=== PATIENT | male | born 1970 | race Caucasian/White ===

== ENCOUNTER 2016-12-06 15:40 | Emergency (ER) | payer OTHER ==
[~2016-12-06] VITALS: Ht 182.9 cm; Wt 102.1 kg
[2016-12-06 15:47] VITALS: BP_SYST 131
--- NOTE | 2016-12-06 16:11 | NUR ---
Patient to ER bed 05 to gown for evaluation. Side rails up. Report given to Nora
--- NOTE | 2016-12-06 16:15 | NUR ---
Pt complains of R shoulder pain that radiates to the R elbow, pt states moved a fridge Reji and the pain has just been getting worse since then. Pt is unable to move shoulder, there is swelling and pt states it hurts inside near his chest. No other injuries/complaints per pt or noted.
--- NOTE | 2016-12-06 16:19 | NUR ---
ER PAULA Hernandez at bedside examining patient.
[2016-12-06] MEDS ORDERED: KETOROLAC TROMETHAMINE 60 MG/2 ML VIAL IM ONE (16:30)
[2016-12-06 16:52] VITALS: BP_SYST 128
--- NOTE | 2016-12-06 16:52 | NUR ---
Patient given written and verbal discharge instructions and verbalizes understanding. ER MD discussed with patient the results and treatment provided. Patient in stable condition. ID arm band removed. Rx of motrin and tramadol given. Patient educated on pain management and to follow up with PMD. Pain Scale 3. Mary is aware and pain medication was given here and a prescription for pain medication at home, pt states will take at home [facility] for questions provided and answered.
== END 2016-12-06 16:52 | disposition home or self-care (01) ==
LOC: SED 15:40
DX: M25.511 Pain in right shoulder (principal)
CPT/HCPCS: 73030; 96372; 99284; J1885